=== PATIENT | female | born 1940 | race Caucasian/White ===

== ENCOUNTER → 2017-03-09 | Outpatient (CLI) | payer OTHER, BC ==
[~2017-03-09] VITALS: Ht 162.6 cm; Wt 70.8 kg
[~2017-03-09] MED LIST: APAP650 PO; FLUOXETINE HCL10 M1 PO; IBUPROFEN 800800 M1 PO; LAMICTAL150 MG PO; LAMOTRIGINE150 MG PO; LASIX 20 MG TAB20 MG PO; NASACORT10.8 ML NS; PROPRANOLOL 1010 MG PO; SIMVASTATIN20 MG PO; VIMPAT50 MG PO; XANAX 0.5 MG0.5 MG PO
--- NOTE | ~2017-03-09 | HPC ---
[facility] [place] [address] PAIN MANAGEMENT CONSULTATION Name: DIXIE BLANKENSHIP Room #: REG [facility].#: [id number] Admission: 03/09/17 Attend Phys: Kulwinder Patino DO Discharge: Date of : 42 Report #: [id number] THIS REPORT FOR: //name// CC: Kulwinder Pena MD DATE OF SERVICE: 03/09/2017 CHIEF COMPLAINT: Low back pain, right lower extremity pain with paresthesias. HISTORY OF PRESENT ILLNESS: As you know, the patient is a 76-year-old female who returns today in followup visit reporting pain score 3/10, states her pain is chronic in nature, begins in the low back, right buttock, radiates down the right thigh. She indicates pain is numbness, aching, sharp and tingling, exacerbated with walking, standing, improves with medications. She returns today in followup visit, discussed treatment options. She indicates no new injury, no new trauma that may have led to symptom development. She did undergo epidural injection at our last visit, which she indicates provided 100% improvement for 5 weeks. She did well, but has had recurrence of pain. She returns to discuss options for treatment. ALLERGIES: ASPIRIN, ERYTHROMYCIN, CLINDAMYCIN, TRAMADOL. CURRENT MEDICATIONS: Simvastatin, fluoxetine, furosemide, ibuprofen, lamotrigine, propranolol, acetaminophen. SOCIAL HISTORY: The patient denies tobacco, alcohol, IV or illicit drug use. She retired in 2012, unaccompanied today. IMAGING: No new imaging available. PHYSICAL EXAMINATION: VITAL SIGNS: Blood pressure 100/48, pulse 62, respiratory rate 16, unlabored. The patient is 98% on room air. Height 5 feet 4 inches tall, weight 156 pounds, BMI calculated 26.8. GENERAL: Well-developed, well-nourished, well-hydrated 76-year-old female. She appears her stated age, placing current pain score at 3/10. HEENT: Normocephalic, atraumatic. Pupils are equal, round, reactive to light. Extraocular muscles are intact. EXTREMITIES: Show no clubbing, no cyanosis, no edema. MUSCULOSKELETAL: Seated straight leg raising negative. Supine straight leg raising mildly positive right. Nayana's test negative. Modified Gaenslen's positive for axial back pain. Ankle clonus negative. She does have palpatory tenderness over the SI joint on the right when compared to left. [address] [address] PAIN MANAGEMENT CONSULTATION Name: DIXIE BLANKENSHIP [id number] Admission: 03/09/17 Attend Phys: Kulwinder Patino DO Discharge: Date of : 42 Report #: [id number] ASSESSMENT: 1. Chronic lumbar radicular symptoms. 2. Spinal stenosis. 3. Chronic intractable pain. PLAN: 1. The patient returns today in followup visit with pain level of around 3/10, states pain is numbness, tingling, burning and electrical in sensation. She returns to discuss options for treatment. We did discuss the possibility of having her undergo a repeat epidural injection. She did very well with this epidural injection, but this only provided 5 weeks of improvement. We also discussed other options including medication management and more aggressive treatment such as spinal cord stimulator therapy and surgical options. After reviewing risks and benefits, the patient chose to begin with physical therapy exercise program, stretching exercises and the possibility of an epidural injection. At this time, the patient is delaying the epidural injection, willing to try more conservative treatments initially. We did discuss the possibility of having the patient return to see her surgery team. At this point, she wishes to consider this option as well. 2. We will make ourselves available to the patient once she has made a decision. She can return, epidural injection could be performed quite easily. The patient does not have any anticoagulant board, so we can utilize those procedures. We can also discuss medication management further and options of surgical treatment. At this point, the patient wishes to consider her options. She would like to return after consideration to discuss treatment options further. 3. No medication changes were made at today's visit. The patient will continue current medical therapy. 4. We will see the patient back in followup visit on an as needed basis. <ELECTRONICALLY SIGNED> By: Kulwinder Patino DO 03/22/17 0908 0954 10 Kulwinder Patino DO /nt
[2017-03-09 10:37] VITALS: BP 100/48
== END ==
LOC: PAIN 06:56
DX: M54.16 Radiculopathy, lumbar region (principal); M48.061 Spinal stenosis, lumbar region without neurogenic claudication; Z88.6 Allergy status to analgesic agent; Z88.1 Allergy status to other antibiotic agents

== ENCOUNTER → 2017-04-20 | Outpatient (CLI) | payer OTHER, BC ==
[~2017-04-20] VITALS: Ht 162.6 cm; Wt 70.8 kg
--- NOTE | ~2017-04-20 | P ---
[facility] [place] [address] PROCEDURE REPORT Name: PATTIEDIXIE S Room #: REG [facility]#: [id number] Admission: 04/20/17 Attend Phys: Kulwinder Patino DO Discharge: Date of : 42 Report #: [id number] THIS REPORT FOR: //name// CC: Kulwinder Pena MD DATE OF SERVICE: 04/20/2017 PROCEDURE NOTE DESCRIPTION OF PROCEDURE: L5-S1 right paramedian epidural steroid injection under fluoroscopic guidance. This is the second procedure of the third series that the patient is undergoing. After obtaining written consent, the patient was taken back to the fluoroscopy suite, placed in a prone position with pillow under the abdomen to decrease lumbar lordosis. The skin overlying the lumbosacral area was then prepped and draped in aseptic fashion. The L5-S1 vertebral interspace was then identified by AP fluoroscopy. The skin and subcutaneous tissue overlying the target site of injection was anesthetized with 3 mL 1% lidocaine. A 20-guage 3-1/2 inch Tuohy needle was then advanced under fluoroscopic guidance towards the epidural space using a right paramedian approach. The epidural space was identified using loss of resistance to air technique. After negative aspiration for heme or cerebrospinal fluid, a total of 0.4 mL of Omnipaque was injected. A lumbar epidurogram was confirmed using both AP and lateral fluoroscopy. After negative aspiration for heme or cerebrospinal fluid, 3 mL of a solution containing 2 mL 40 mg per mL, 80 mg total triamcinolone, 1 mL of lidocaine 1% was injected in increments. Contrast spread was noted posterior epidural space. The needle was then retracted approximately half way and needle tract flushed with 1 mL of 1% lidocaine. Needle was then removed. There were no apparent sensory or motor deficits in the lower extremity following the procedure. A sterile bandage was placed over the injection site. The heart rate, pulse, oximetry and blood pressure were continuously monitored after the procedure. There were no apparent complications. The patient tolerated the procedure well and was carefully escorted to the recovery room in [address] [address] PROCEDURE REPORT Name: DIXIE BLANKENSHIP Room #: REG [facility]#: [id number] Admission: 04/20/17 Attend Phys: Kulwinder Patino DO Discharge: Date of : 42 Report #: [id number] stable condition. There were no apparent complications. After meeting discharge criteria, the patient was then discharged home. <ELECTRONICALLY SIGNED> By: Kulwinder Patino DO 04/26/17 0916 1152 1246 Kulwinder Patino DO /nt
--- NOTE | ~2017-04-20 | HPC ---
[facility] [place] [address] PAIN MANAGEMENT CONSULTATION Name: DIXIE BLANKENSHIP Room #: REG [facility].#: [id number] Admission: 04/20/17 Attend Phys: Kulwinder Patino DO Discharge: Date of : 42 Report #: [id number] THIS REPORT FOR: //name// CC: Kulwinder Pena MD DATE OF SERVICE: 04/20/2017 REFERRING PHYSICIAN: Francois Pena M.D. CHIEF COMPLAINT: Low back pain, right lower extremity pain and paresthesias. HISTORY OF PRESENT ILLNESS: As you know, the patient is a pleasant 76-year-old female who returns today in followup visit with pain score 4/10, states her pain that she is experiencing is numbness, tingling, sharp and aching in sensation, exacerbated with walking, standing, improves with medications and previous epidural injections. The patient reports a 70% to 75% improvement in overall pain with the epidural injection provided at last visit. She returns today requesting this injection hopefully to improve on previous interventional therapy. ALLERGIES: ASPIRIN, ERYTHROMYCIN, CLINDAMYCIN, TRAMADOL. CURRENT MEDICATIONS: Simvastatin, fluoxetine, furosemide, ibuprofen, lamotrigine, propranolol, acetaminophen. SOCIAL HISTORY: The patient denies tobacco, alcohol, IV or illicit drug use. She retired in 2012, unaccompanied today. IMAGING: No new imaging available. PQRS: The patient has history of upper and lower extremity osteoarthritis. No rheumatoid arthritis. She has a pain intensity today of 4/10. She is not a fall risk, has not had a fall in the past 3 months. She is not on blood thinners. She has no history of hypertension. She is not taking chronic opioids through [facility]. Her functional assessment is 25/70, indicating [id number] interference of daily activities secondary to pain. PHYSICAL EXAMINATION: VITAL SIGNS: Blood pressure 115/47, pulse 67, respiratory rate 16, unlabored. The patient is 98% on room air. Height 5 feet 4 inches tall, weight 158 pounds, BMI calculated at 26.8. GENERAL: Well-developed, well-nourished, well-hydrated 76-year-old female appearing her stated age. Pain is rated at around 4/10. HEENT: Normocephalic, atraumatic. Pupils equal, round[place] [address] PAIN MANAGEMENT CONSULTATION Name: DIXIE BLANKENSHIP Room #: REG [facility] Griselda#: [id number] Admission: 04/20/17 Attend Phys: Kulwinder Patino DO Discharge: Date of : 42 Report #: [id number] EXTREMITIES: Show no clubbing, no cyanosis, no edema. MUSCULOSKELETAL: Seated straight leg raising negative. Supine straight leg raising positive on the right. Nayana's test negative. Modified Gaenslen's positive for axial low back pain. Well healed surgical scars over the lower lumbar spine. No erythema, no drainage. ASSESSMENT: 1. Chronic lumbar radiculopathy. 2. Spinal stenosis of the lumbar spine. 3. Lumbosacral spondylosis with radicular symptoms. 4. Lumbar degeneration. 5. Chronic intractable pain. PLAN: 1. The patient returns today in followup visit to undergo next in the series of epidural injections. The patient reports 70% to 75% improvement in overall pain with previous epidural injection. She has unfortunately had a slow and progressive return of symptoms, no inciting injury or trauma. She returns today requesting this epidural injection be performed today. I have advised the patient of the risks and benefits of the procedure, states understood and wished to proceed. 2. No medication changes were made at today's visit. The patient to continue current medical therapy as previously prescribed. 3. The patient to return to our clinic on an as-needed basis for the next in a series of epidural injections. <ELECTRONICALLY SIGNED> By: Kulwinder Patino DO 04/26/17 0916 1152 1246 Kulwinder Patino DO /nt
[2017-04-20 11:07] VITALS: BP 115/47
== END ==
LOC: PAIN 06:52
DX: M54.16 Radiculopathy, lumbar region (principal); M47.897 Other spondylosis, lumbosacral region; G89.29 Other chronic pain; Z88.6 Allergy status to analgesic agent; Z88.1 Allergy status to other antibiotic agents

== ENCOUNTER → 2017-06-21 | Outpatient (CLI) | payer OTHER, BC ==
[~2017-06-21] VITALS: Ht 162.6 cm; Wt 70.3 kg
--- NOTE | ~2017-06-21 | HPC ---
[facility] [place] [address] PAIN MANAGEMENT CONSULTATION Name: DIXIE BLANKENSHIP Room #: REG [facility].#: [id number] Admission: 06/21/17 Attend Phys: Kulwinder Patino DO Discharge: Date of : 42 Report #: [id number] THIS REPORT FOR: //name// CC: Kulwinder Pena MD DATE OF SERVICE: 06/21/2017 REFERRING PHYSICIAN: Francois Pena M.D. CHIEF COMPLAINT: Low back pain and right lower extremity pain with paresthesias. HISTORY OF PRESENT ILLNESS: As you know, the patient is a very pleasant 76-year-old female returning in followup visit with low back pain and right lower extremity pain. She indicates pain is chronic in nature, aching, constant sensation with intermittent numbness and tingling. Pain rated anywhere from 4-8/10. Standing and walking exacerbate symptoms. Medications, sitting and epidural injections provide improvement. She returns today requesting epidural injection under fluoroscopic guidance. She denies new injury or new trauma that may have led to symptoms reoccurrence. ALLERGIES: ASPIRIN, ERYTHROMYCIN, CLINDAMYCIN and TRAMADOL. CURRENT MEDICATIONS: Simvastatin, fluoxetine, furosemide, ibuprofen, lamotrigine, propranolol and acetaminophen. SOCIAL HISTORY: The patient denies tobacco, alcohol or IV or illicit drug use. She is retired, retired in 2012, unaccompanied today. IMAGING DATA: No new imaging available. PQRS: The patient has known osteoarthritis. No rheumatoid arthritis. She has pain intensity anywhere from 4-8/10, not a fall risk, has not had a fall in the past 3 months. She is not on blood thinners and has no history of hypertension. She is not taking chronic opioids. Her functional assessment is around . PHYSICAL EXAMINATION: VITAL SIGNS: Blood pressure 105/53, pulse 66 and respiratory rate 20 and unlabored. The patient 99% on room air, height 5 feet 4 inches tall, weight 155 pounds and BMI calculated 26.6. GENERAL: Well-developed, well-nourished, well-hydrated 76-year-old female appearing stated age, pain is rated anywhere from 4-8/10. HEENT: Normocephalic and atraumatic. Pupils equal, round and reactive to light. [facility] [address] [place] [address] PAIN MANAGEMENT CONSULTATION Name: DIXIE BLANKENSHIP Room #: REG [facility].#: [id number] Admission: 06/21/17 Attend Phys: Kulwinder Patino DO Discharge: Date of : 42 Report #: [id number] EXTREMITIES: Show no clubbing, no cyanosis and no edema. MUSCULOSKELETAL: Seated straight leg raising negative. Supine straight leg raising positive. Fabere's test negative. Modified Gaenslen's positive for axial low back pain. Ankle clonus negative. Babinski is negative. Gait slightly antalgic favoring right lower extremity over left. ASSESSMENT: 1. Lumbar radiculopathy. 2. Spinal stenosis of the lumbar spine. 3. Displacement of lumbar intervertebral disk with radiculopathy. 4. Lumbosacral spondylosis with radiculopathy. 5. Lumbar degeneration. 6. Chronic intractable pain. PLAN: 1. The patient returns today in followup visit requesting to undergo next in the series of epidural injections. She notes good efficacy with epidurals in the past and is hopeful to see similar improvement today. We advised the patient of the risks and the benefits of this procedure. The risks include, but are not necessarily limited to bleeding, bruising, infection, worsening pain, no relief of pain, also risk of temporary or permanent muscle weakness, temporary or permanent paralysis, possible post-dural puncture headache and . The patient states understood and wished to proceed. 2. No medication changes made at today's visit. The patient will continue current medical therapy as previously prescribed. 3. We will see the patient back in followup visit on an as needed basis for next in the series of epidural injections. We did provide the patient with information about spinal cord stimulator today. This is an option in the patient's case as is surgical. She will consider these options depending on the effects of the epidural injection. PROCEDURE NOTE DESCRIPTION OF PROCEDURE: L5-S1 right paramedian epidural steroid injection under fluoroscopic guidance. This is the third procedure of the third series that the patient is undergoing. After obtaining written consent, the patient was taken back to the fluoroscopy suite, placed in a prone position with pillow under the abdomen to decrease lumbar lordosis. The skin overlying the lumbosacral area was then prepped and draped in aseptic fashion. The L5-S1 vertebral interspace was then identified by AP fluoroscopy. The skin and subcutaneous tissue overlying the target site of injection was anesthetized with 3 mL 1% lidocaine. A 20-gauge 3-1/2 inch Tuohy needle was then advanced under fluoroscopic guidance [address] [address] PAIN MANAGEMENT CONSULTATION Name: DIXIE BLANKENSHIP [id number] Admission: 06/21/17 Attend Phys: Kulwinder Patino DO Discharge: Date of : 42 Report #: [id number] towards the epidural space using a right paramedian approach. The epidural space was identified using loss of resistance to air technique. After negative aspiration for heme or cerebrospinal fluid, a total of 1 mL of Omnipaque was injected. A lumbar epidurogram was confirmed using both AP and lateral fluoroscopy. After negative aspiration for heme or cerebrospinal fluid, 5 mL of solution containing 2 mL 40 mg per mL, 80 mg total triamcinolone, 3 mL lidocaine 1% was injected in increments. Contrast spread was noted posterior epidural space. The needle was then retracted approximately half way and needle tract flushed with 1 mL of 1% lidocaine. Needle was then removed. There were no apparent sensory or motor deficits in the lower extremity following the procedure. A sterile bandage was placed over the injection site. The heart rate, pulse, oximetry and blood pressure were continuously monitored after the procedure. There were no apparent complications. The patient tolerated the procedure well and was carefully escorted to the recovery room in stable condition. There were no apparent complications. After meeting discharge criteria, the patient was then discharged home. <ELECTRONICALLY SIGNED> By: Kulwinder Patino DO 06/28/17 0749 0852 [id number] Kulwinder Patino DO /nt
[2017-06-21 11:14] VITALS: BP 105/53
== END | disposition home or self-care (01) ==
LOC: PAIN 07:01
DX: M51.16 Intervertebral disc disorders with radiculopathy, lumbar region (principal); M48.061 Spinal stenosis, lumbar region without neurogenic claudication; M47.27 Other spondylosis with radiculopathy, lumbosacral region; G89.29 Other chronic pain; M19.90 Unspecified osteoarthritis, unspecified site; Z79.899 Other long term (current) drug therapy; Z79.82 Long term (current) use of aspirin; Z88.8 Allergy status to other drugs, medicaments and biological substances

== ENCOUNTER → 2017-09-06 | Outpatient (CLI) | payer OTHER, BC ==
[~2017-09-06] VITALS: Ht 162.6 cm; Wt 70.3 kg
--- NOTE | ~2017-09-06 | HPC ---
[facility] [place] [address] PAIN MANAGEMENT CONSULTATION Name: DIXIE BLANKENSHIP Room #: REG [facility].#: [id number] Admission: 09/06/17 Attend Phys: Kulwinder Patino DO Discharge: Date of : 42 Report #: [id number] THIS REPORT FOR: //name// CC: Kulwinder Pena MD DATE OF SERVICE: 09/06/2017 REFERRING PHYSICIAN: Francois Pena MD CHIEF COMPLAINT: Low back pain, right lower extremity pain and paresthesias. HISTORY OF PRESENT ILLNESS: As you know, the patient is a very pleasant 77-year-old female returning in followup visit requesting to undergo next in the series of epidural injections under fluoroscopic guidance. She is placing a current pain score of 4/10. She reports our previous epidural injection provided 75% improvement in overall pain lasting for nearly 1-1/2 months. She has had a slow and progressive return of symptoms. She returns requesting next in the series to build on success of previous intervention. The patient has denied any new injury or new trauma that may have led to symptom reoccurrence. ALLERGIES: ASPIRIN, ERYTHROMYCIN, CLINDAMYCIN, TRAMADOL. CURRENT MEDICATIONS: Simvastatin, fluoxetine, furosemide, ibuprofen, lamotrigine, pantoprazole, acetaminophen. SOCIAL HISTORY: The patient denies tobacco, alcohol, IV or illicit drug use. She retired in 2012. She is unaccompanied today. IMAGING: No new imaging available. PQRS: The patient has osteoarthritis of the lower back as well as changes in the cervical region. No rheumatoid arthritis. She has pain intensity reported at 4/10. She is not a fall risk, has not had a fall in the last 3 months. She is not on blood thinners and has no history of hypertension. She does not take any chronic opioids. She indicates pain impact score of 38/70 moderate. PHYSICAL EXAMINATION: VITAL SIGNS: Blood pressure 124/50, pulse is 65, respiratory rate 16 and unlabored. The patient is 97% on room air. Height 5 feet 4 inches tall, weight 155 pounds, BMI calculated 26.6. GENERAL: Well-developed, well-nourished, well-hydrated 77-year-old female, appearing her stated age. She is placing current pain score at around 4/10. HEENT: Normocephalic, atraumatic. Pupils equal, round, reactive to light. EXTREMITIES: Show no clubbing, no cyanosis, no edema. [facility] [address] [place] [address] PAIN MANAGEMENT CONSULTATION Name: DIXIE BLANKENSHIP Room #: [facility]#: [id number] Admission: 09/06/17 Attend Phys: Kulwinder Patino DO Discharge: Date of : 42 Report #: [id number] MUSCULOSKELETAL: Seated straight leg raising negative. Supine straight leg raising is positive on the right. Nayana's test negative. Modified Gaenslen's positive for axial back pain. Ankle clonus negative. Babinski is negative. Gait is antalgic favoring the right lower extremity over left. ASSESSMENT: 1. Lumbar radiculopathy. 2. Progressively worsening spinal stenosis of the lumbar spine. 3. Displacement of lumbar intervertebral disk with radiculopathy. 4. Lumbosacral spondylosis with radiculopathy. 5. Lumbar degeneration. 6. Chronic intractable pain. PLAN: 1. The patient has returned today in followup visit requesting to undergo epidural injection under fluoroscopic guidance. She reports 75% improvement in overall pain with previous injection. She returns requesting next in the series to build on success of previous intervention. The patient advised risks and benefits of the procedure, states understood and wished to proceed. 2. No medication changes were made at today's visit. The patient to continue current medical therapy as previously prescribed. 3. The patient did have some prolonged local anesthetic blockade of the sensory nerves of the lower lumbar spine after today's epidural injection, would recommend that future injections are done without local anesthetic within the injectate itself. This will reduce the potential of post-procedural numbness. PROCEDURE NOTE DESCRIPTION OF PROCEDURE: L5-S1 right paramedian epidural steroid injection under fluoroscopic guidance. This is the first procedure of the fourth series that the patient is undergoing. After obtaining written consent, the patient was taken back to the fluoroscopy suite, placed in a prone position with pillow under the abdomen to decrease lumbar lordosis. The skin overlying the lumbosacral area was then prepped and draped in aseptic fashion. The L5-S1 vertebral interspace was then identified by AP fluoroscopy. The skin and subcutaneous tissue overlying the target site of injection was anesthetized with 3 mL 1% lidocaine. A 20-guage 3-1/2 inch Tuohy needle was then advanced under fluoroscopic guidance towards the epidural space using a right paramedian approach. The epidural space was identified using loss of resistance to air technique. After negative aspiration for heme or cerebrospinal fluid, a total of 0.5 mL of Omnipaque was injected. A lumbar epidurogram was confirmed using both AP and lateral fluoroscopy. After negative aspiration for heme or cerebrospinal fluid, 5 mL of [address] [address] PAIN MANAGEMENT CONSULTATION Name: DIXIE BLANKENSHIP Room #: REG [facility]#: [id number] Admission: 09/06/17 Attend Phys: Kulwinder Patino DO Discharge: Date of : 42 Report #: [id number] a solution containing 2 mL 40 mg per mL, 80 mg total triamcinolone, 3 mL of lidocaine 1% was injected in increments. Contrast spread was noted posterior epidural space. The needle was then retracted approximately half way and needle tract flushed with 1 mL of 1% of lidocaine. Needle was then removed. There were no apparent sensory or motor deficits in the lower extremity following the procedure. A sterile bandage was placed over the injection site. The heart rate, pulse, oximetry and blood pressure were continuously monitored after the procedure. There were no apparent complications. The patient tolerated the procedure well and was carefully escorted to the recovery room in stable condition. There were no apparent complications. After meeting discharge criteria, the patient was then discharged home. <ELECTRONICALLY SIGNED> By: Kulwinder Patino DO 09/07/17 0853 1634 [id number] Kulwinder Patino DO /nt
[2017-09-06 11:02] VITALS: BP 124/50
== END | disposition home or self-care (01) ==
LOC: PAIN 08:16
DX: M51.16 Intervertebral disc disorders with radiculopathy, lumbar region (principal); G89.29 Other chronic pain; M48.061 Spinal stenosis, lumbar region without neurogenic claudication; M47.27 Other spondylosis with radiculopathy, lumbosacral region; M19.90 Unspecified osteoarthritis, unspecified site; Z98.890 Other specified postprocedural states; Z88.8 Allergy status to other drugs, medicaments and biological substances; Z79.899 Other long term (current) drug therapy